=== PATIENT | female | born 1955 | race Caucasian/White ===

== ENCOUNTER 2016-10-22 12:44 | Emergency (ER) | payer OTHER ==
[~2016-10-22] VITALS: Ht 157.5 cm; Wt 67.7 kg
[~2016-10-22 12:44] MED LIST: ALPRAZOLAM0.25 M2 PO; CRESTOR20 MG PO; DIOVAN HCT 11 TABLET PO; FISH OIL 1,0001 EAC7 PO; HYZAAR 100-11 TABLET PO; INDOCIN50 MG PO; LIDODERM 5% P1 PATCH PO; LOPRESSOR50 MG PO; LOSARTAN-HCTZ1 EACH PO; PAXIL20 MG PO; PRILOSEC20 MG PO; PRILOSEC40 MG PO; PROZAC40 MG PO; TOPROL XL50 MG PO; TRAZODONE HCL50 MG PO; WYGESIC,DARV1 TABLET PO; ZANTAC150 MG PO
[2016-10-22] MEDS ORDERED: CELEBREX100 MG PO (14:08)
[2016-10-22 14:26] LABS: HEMATOCRIT 38.6 % (36.0-46.0); MCH 30.1 PG (29.0-34.0); MCHC 34.7 G/DL (30.0-36.0); MCV 86.7 FL (83-99); PLATELET COUNT 291 K/uL (156-360); RBC DIS.WIDTH-CV 13.6 % (11.8-14.6); RBC DIS.WIDTH-SD 42.2 % (39-53); RED BLOOD COUNT 4.45 M/uL (3.80-5.20); WHITE BLOOD COUNT 6.8 K/uL (4.1-10.2)
[2016-10-22 14:44] LABS: ADD MIUA? NO; BILIRUBIN NEGATIVE; BLOOD NEGATIVE; COLOR YELLOW ((YELLOW)); GLUCOSE (STRIP) NEGATIVE; KETONES NEGATIVE; LEUKOCYTES NEGATIVE; NITRITE NEGATIVE; PROTEIN (STRIP) NEGATIVE; SPECIFIC GRAVITY 1.017 (1.000-1.030); UCUL ADDED? NO; UROBILINOGEN 0.2 MG/DL (0.2-1.0)
[2016-10-22 15:01] LABS: ANION GAP 10 MEQ/L (2-14); CHLORIDE 106 MEQ/L (99-109); POTASSIUM 4.4 MEQ/L (3.7-5.4); SAMPLE HEMOLYSIS CHECK 0; SAMPLE ICTERIC CHECK 0; SAMPLE LIPEMIA CHECK 1; SODIUM 142 MEQ/L (136-147); TOTAL BILIRUBIN 0.4 MG/DL (0.0-1.0)
[2016-10-22 15:07] LABS: ALKALINE PHOSPHATASE 106 IU/L (3-129); GFR ESTIMATE (CALCULATED) 54 mL/min/; GLUCOSE 76 mg/dL (70-99); LIPASE 45 U/L (1.0-51.0); UREA NITROGEN (BUN) 21 mg/dL (9-23)
[2016-10-22] MEDS ORDERED: ULTRAM50 MG PO (16:51)
[2016-10-22 17:04] VITALS: BP 142/95
== END 2016-10-22 17:05 | disposition home or self-care (01) ==
LOC: EME 12:44
DX: R10.9 Unspecified abdominal pain (principal); K92.2 Gastrointestinal hemorrhage, unspecified; I72.8 Aneurysm of other specified arteries; R11.0 Nausea; R19.7 Diarrhea, unspecified; I10 Essential (primary) hypertension; Z87.442 Personal history of urinary calculi
CPT/HCPCS: 74176; 80053; 81003; 83690; 85027; 99281; 99285; J1885; J7030

== ENCOUNTER 2017-06-29 08:17 | Day surgery (SDC) | payer OTHER ==
[~2017-06-29] VITALS: Ht 157.5 cm; Wt 63.0 kg
[~2017-06-29 08:17] MED LIST changes: +CELEBREX100 MG PO; +FLEXERIL5 MG PO; +LOPID600 MG PO; +ULTRAM50 MG PO; +XANAX0.25 MG PO
[2017-06-29 08:42] VITALS: BP 121/77
[2017-06-29 11:45] VITALS: BP 163/79
[2017-06-29 12:27] VITALS: BP 126/80
== END 2017-06-29 12:37 | disposition home or self-care (01) ==
LOC: SDC 08:17
PROC: 01NB0ZZ Release Lumbar Nerve, Open Approach (ICD-10-PCS; principal; 2017-06-29)
DX: M48.061 Spinal stenosis, lumbar region without neurogenic claudication (principal); M51.16 Intervertebral disc disorders with radiculopathy, lumbar region; M79.605 Pain in left leg; M99.83 Other biomechanical lesions of lumbar region
CPT/HCPCS: 72020; 76000; J0131; J0690; J1040; J1100; J1170; J2250; J2405; J2710; J7643; S0020